=== PATIENT | male | born 1965 | race African-American/Black ===

== ENCOUNTER 2023-12-19 15:07 | Emergency (ER) | payer OTHER, SELFPAY ==
[2023-12-19 15:22] VITALS: BP 145/84; PULSE 95; RESP 16; TEMP 36.4; O2SAT 100
--- NOTE | 2023-12-19 15:59 | ED.WOUNDLAC ---
HPI - Wound/Laceration General Chief Complaint: Wound/Laceration Stated Complaint: finger laceration Time Seen by Provider: 12/19/23 15:17 Source: patient Mode of arrival: ambulatory Limitations: no limitations History of Present Illness HPI narrative: This is a 58-year-old male that presents to the emergency department for right 3rd finger laceration. Sustained just prior to arrival. Reports he was trying to cut up corn and accidentally cut his finger. Reports bleeding and pain to the area. Patient does not believe he has had a tetanus vaccination in the last 5 years. Denies decreased range of motion or numbness. Related Data Allergies Allergy/AdvReac Type Severity Reaction Status Date / Time No Known Allergies Allergy Verified 12/19/23 15:16 Review of Systems Review of Systems: CONSTITUTIONAL: Denies fever SKIN: Reports laceration All systems reviewed & are unremarkable except as noted in HPI and below PMFSH Past Medical History Medical History (Updated 12/19/23 @ 16:05 by Sherrill Huber PA-C) History of hyperlipidemia History of hypertension Social History Social History (Updated 12/19/23 @ 16:02 by Sherrill Huber PA-C) Smoking status: Never smoker Exam Narrative: GENERAL: Well-appearing, well-nourished, and in no acute distress. HEAD: Normocephalic, atraumatic. EYES: EOMI. EXTREMITIES: Normal range of motion. No edema. Right third finger distal phalanx with 1.5cm linear laceration into subcutaneous tissue SKIN: Warm, dry, no rash. NEURO: No focal deficits. Alert and oriented x3. PSYCH: Normal mood and affect Course Course Emergency Course: Patient educated on wound care Vital Signs Vital signs: Vital Signs Pulse Rate 5 L 12/19/23 15:22 Respiratory Rate 16 12/19/23 15:22 Blood Pressure 145/84 H 12/19/23 15:22 Pulse Oximetry 100 12/19/23 15:22 Pulse Rate 5 L 12/19/23 15:22 Respiratory Rate 16 12/19/23 15:22 Blood Pressure 145/84 H 12/19/23 15:22 Pulse Oximetry 100 12/19/23 15:22 Procedures Laceration Laceration 1: Date: 12/19/23 Time: 16:03 Site: hand Side (If applicable): right Size (cm): 1.5 Description: linear Depth: simple, single layer Local Anesthetic: lidocaine 1% Amount of anesthesia used (mL): 2 Pre-repair: irrigated ====== Skin Level ====== Skin layer closed with: nylon Size (cm): 4-0 Number of sutures: 2 Technique: simple, interrupted ====== Subcutaneous Layer ====== ====== Muscle Layer ====== ====== Tendon Layer ====== MDM - Wound/Laceration MDM Narrative Medical decision making narrative: Patient presents the emergency department after a laceration sustained just prior to arrival. He is neurovascularly intact. Wound is irrigated and closed with sutures. He was updated on tetanus vaccination. He is to follow up with primary provider. He was given warnings to return to the ER Differential Diagnosis Differential diagnosis: Likely laceration and avulsion of skin Critical Care Time Critical Care Time Critical Care Time: No Discharge Plan Discharge Clinical Impression: Laceration Patient Disposition: Home, Self-Care Condition: Stable Instructions: Care For Your Stitches (ED), Laceration (ED) Additional Instructions: Return to the emergency department if you experience fever, redness or swelling of your wound, abnormal drainage from your wound, or any other symptoms that are concerning to you. Apply antibiotic ointment daily. Do not soak the wound. Clean with mild soap and water daily Follow-up with your primary care doctor for suture removal in 10-14 days. Follow-up/Referrals: Esperanza,Yury Bal MD [Primary Care Provider] - 2 Weeks
[2023-12-19] MEDS: TETANUS,DIPHTHERIA,AC PERTUSSIS ADULT (0.5 ML) BOOSTRIX IM (16:16)
== END 2023-12-19 16:39 | disposition home or self-care (01) ==
PROVIDERS: Emergency Provider Physician Assistant; PCP Internal Medicine
DX: S61.212A Laceration without foreign body of right middle finger without damage to nail, initial encounter (principal); Z23 Encounter for immunization; I10 Essential (primary) hypertension; E78.5 Hyperlipidemia, unspecified; W26.9XXA Contact with unspecified sharp object(s), initial encounter; Y93.G1 Activity, food preparation and clean up
CPT/HCPCS: 12001; 90471; 90715; 99282